=== PATIENT | female | born 1965 | race Caucasian/White ===

== ENCOUNTER 2018-06-08 11:56 | Emergency (ER) | payer BC ==
[~2018-06-08 11:56] MED LIST: ISOVUE-370 76%-LOCM 1 ML ONE
[2018-06-08 12:31] LABS: Band 17 % (5-11); Eosinophils 2 % (0-10); Hemoglobin 15.1 g/dL (12.0-16.0); Lymphocytes 9 % (21-51); MDiff Complete? YES; Mean Corpuscular HGB CONC 32.6 g/dL (32.0-36.0); Mean Corpuscular Hemoglobin 28.6 pg (27.0-31.0); Mean Corpuscular Volume 87.9 fL (78.0-98.0); Mean Platelet Volume 6.9 fL (7.4-10.4); Monocytes 2 % (0-10); Neutrophil 70 % (42-75); Platelet Count 465 thou/uL (130-400); Red Blood Cell (RBC) Count 5.27 mill/uL (4.20-5.40); White Blood Cell (WBC) Count 19.2 thou/uL (4.8-10.8)
[2018-06-08 12:37] LABS: ALT (SGPT) 23 U/L (8-55); AST (SGOT) 16 U/L (5-34); Albumin 4.6 g/dL (3.5-5.0); Alkaline Phosphatase 89 U/L (40-150); Anion Gap 17 mmol/L (10-20); BUN (Urea Nitrogen) 19 mg/dL (9.8-20.1); Bilirubin, Total 0.8 mg/dL (0.2-1.2); Calc. Creatinine Clearance 0 mL/min (70-130); Calcium 9.6 mg/dL (7.8-10.44); Carbon Dioxide 20 mmol/L (22-29); Chloride 105 mmol/L (98-107); Estimated GFR-MDRD 71; Glucose 210 mg/dL (70-105); Lipase 28 U/L (8-78); Potassium 4.2 mmol/L (3.5-5.1); Protein, Total 7.6 g/dL (6.0-8.3); Sodium 138 mmol/L (136-145)
[2018-06-08] MEDS ORDERED: Ondansetron PF 4 MG/2 ML Vial ONE (12:52)
[2018-06-08] MEDS ORDERED: Morphine 4 MG/ML VIAL ONE (12:52)
--- NOTE | 2018-06-08 13:30 | ULT ---
RIGHT UPPER QUADRANT ULTRASOUND: Date: 06/08/18 INDICATION: Right upper quadrant pain, nausea, vomiting, and diarrhea. COMPARISON: None. FINDINGS: There is fatty infiltration of the liver. The liver is enlarged, measuring 12.54 cm. The gallbladder is normal. No sonographic Lopez's sign is reported. Common bile duct measures 6.1 mm. Visualized asp ects of the pancreas are unremarkable. Right kidney measures 10.9 cm. No focal renal lesion or hydron ephrosis evident. IMPRESSION: Fatty liver and hepatomegaly. POS: BH
[2018-06-08] MEDS ORDERED: Ketorolac Tromethamine 30 MG/ML VIAL ONE (14:25)
--- NOTE | 2018-06-08 14:25 | CT ---
EXAM: CT abdomen and pelvis with IV contrast PROVIDED CLINICAL HISTORY: Abdominal pain COMPARISON: None FINDINGS: The visualized lung bases are free of significant opacity. The liver, spleen, pancreas, kidneys and adrenal glands demonstrate an unremarkable CT appearance. There is no bowel dilatation, inflammatory fat stranding, free fluid or free air apparent. There are multiple loops of fluid-filled bowel as well as fluid density within portions of the colon. The appendix appears normal. The osseous structures demonstrate no concerning osteoblastic or osteolytic lesions. Lower lumbar spi ne degenerative changes are seen. IMPRESSION: Fluid density within small bowel and colon suggesting a diarrheal illness. Otherwise unremarkable exa mination.
[2018-06-08 15:16] LABS: Bilirubin Negative (Negative); Blood, Urine Negative (Negative); Clarity CLEAR (Clear); Glucose, Urine (Dipstick) Negative (Negative); Leukocyte Negative (Negative); Nitrite Negative (Negative); Protein, Urine (Dipstick) Negative (Neg-Trace); Urobilinogen 0.2 mg/dL (0.2-1.0)
[2018-06-08 15:26] LABS: Specific Gravity, Urine 1.056 (1.002-1.036)
== END 2018-06-08 16:06 | disposition home or self-care (01) ==
LOC: ERS 11:56
DX: K52.9 Noninfective gastroenteritis and colitis, unspecified (principal); E78.5 Hyperlipidemia, unspecified; E11.9 Type 2 diabetes mellitus without complications; F32.9 Major depressive disorder, single episode, unspecified; Z87.891 Personal history of nicotine dependence; Z79.84 Long term (current) use of oral hypoglycemic drugs; Z79.899 Other long term (current) drug therapy; Z79.82 Long term (current) use of aspirin
CPT/HCPCS: 36416; 51701; 74177; 76705; 80053; 81003; 83690; 85025; 87086; 93005; 96361; 96372; 96374; 96375; A4353; J0500; J1885; J2270; J2405; Q9966